=== PATIENT | female | born 1975 | race Caucasian/White ===

== ENCOUNTER 2017-07-05 13:10 | Outpatient (CLI) | payer BC ==
--- NOTE | 2017-07-05 15:32 | MMO ---
BILATERAL MAMMOGRAMS: DATE: 07/05/17 HISTORY: Screening mammography. COMPARISON: Baseline study. FINDINGS: Scattered fibroglandular densities are present. There is no dominant mass or suspicious calcificatio ns. The study was evaluated with the assistance of computer-aided detection. IMPRESSION: BIRADS 1: Negative Suggest routine follow-up. POS: BAILEE
== END 2017-07-05 13:11 | disposition home or self-care (01) ==
LOC: MAMMO 13:10
PROVIDERS: ATTEND Family Medicine
DX: Z12.31 Encounter for screening mammogram for malignant neoplasm of breast (principal)
CPT/HCPCS: 77067; G0202

== ENCOUNTER 2018-09-18 13:59 | Emergency (ER) | payer BC ==
[2018-09-18 18:29] LABS: #Basophils 0.1 thou/uL (0.0-0.2); #Eosinphils 0.1 thou/uL (0.0-0.7); #Lymphocytes 3.2 thou/uL (1.20-3.40); #Monocytes 0.4 thou/uL (0.11-0.59); #Neutrophils 3.6 thou/uL (1.40-6.50); %Eosinophils 1.2 % (0.0-10.0); %Lymphocytes 42.7 % (21.0-51.0); %Neutrophils 49.2 % (42.0-75.0); Hemoglobin 14.3 g/dL (12.0-16.0); Mean Corpuscular HGB CONC 32.6 g/dL (32.0-36.0); Mean Corpuscular Hemoglobin 31.5 pg (27.0-31.0); Mean Corpuscular Volume 96.9 fL (78.0-98.0); Mean Platelet Volume 8.3 fL (7.4-10.4); Platelet Count 246 thou/uL (130-400); RBC Distribution Width 11.8 % (11.5-14.5); Red Blood Cell (RBC) Count 4.54 mill/uL (4.20-5.40); White Blood Cell (WBC) Count 7.4 thou/uL (4.8-10.8)
[2018-09-18 18:50] LABS: ALT (SGPT) 13 U/L (8-55); AST (SGOT) 16 U/L (5-34); Albumin 4.1 g/dL (3.5-5.0); Alkaline Phosphatase 106 U/L (40-150); Anion Gap 12 mmol/L (10-20); BUN (Urea Nitrogen) 11 mg/dL (7.0-18.7); Bilirubin, Total 0.2 mg/dL (0.2-1.2); Calc. Creatinine Clearance 0 mL/min (70-130); Calcium 9.4 mg/dL (7.8-10.44); Carbon Dioxide 22 mmol/L (22-29); Chloride 108 mmol/L (98-107); Estimated GFR-MDRD 76; Globulin 2.4 g/dL (2.4-3.5); Glucose 68 mg/dL (70-105); Potassium 3.9 mmol/L (3.5-5.1); Protein, Total 6.5 g/dL (6.0-8.3); Sodium 138 mmol/L (136-145)
== END 2018-09-18 19:50 | disposition home or self-care (01) ==
LOC: ERS 13:59
DX: R42 Dizziness and giddiness (principal); T44.7X5A Adverse effect of beta-adrenoreceptor antagonists, initial encounter; E03.9 Hypothyroidism, unspecified; G43.909 Migraine, unspecified, not intractable, without status migrainosus; F31.9 Bipolar disorder, unspecified; F41.9 Anxiety disorder, unspecified; F17.200 Nicotine dependence, unspecified, uncomplicated; Z79.899 Other long term (current) drug therapy
CPT/HCPCS: 36415; 80053; 85025; 93005

== ENCOUNTER 2019-04-23 19:30 | Outpatient (CLI) | payer BC | END 2019-04-23 19:31 | disposition home or self-care (01) | LOC: SLEEPLAB 19:30 | PROVIDERS: ATTEND Family Medicine | DX: G47.33 Obstructive sleep apnea (adult) (pediatric) (principal); R53.83 Other fatigue; G31.84 Mild cognitive impairment of uncertain or unknown etiology; R51 Headache; E66.9 Obesity, unspecified; K21.9 Gastro-esophageal reflux disease without esophagitis; R06.83 Snoring; F41.8 Other specified anxiety disorders; I10 Essential (primary) hypertension | CPT/HCPCS: 95810 ==

== ENCOUNTER 2019-06-19 20:30 | Outpatient (CLI) | payer BC | END 2019-06-19 20:31 | disposition home or self-care (01) | LOC: SLEEPLAB 20:30 | PROVIDERS: ATTEND Family Medicine | DX: G47.33 Obstructive sleep apnea (adult) (pediatric) (principal); R53.83 Other fatigue; R51 Headache; E66.9 Obesity, unspecified; K21.9 Gastro-esophageal reflux disease without esophagitis; R06.83 Snoring; F41.8 Other specified anxiety disorders; I10 Essential (primary) hypertension | CPT/HCPCS: 95811 ==

== ENCOUNTER 2019-07-20 19:48 | Inpatient (IN) | payer BC ==
[2019-07-20] MEDS ORDERED: Lidocaine 1% w/Epinephrine 1:100K 20 ML VIAL ONE (21:26)
[2019-07-20] MEDS ORDERED: Morphine 4 MG/ML VIAL ONE (21:26)
[2019-07-20 21:29] LABS: #Basophils 0.1 thou/uL (0.0-0.2); #Eosinphils 0.2 thou/uL (0.0-0.7); #Lymphocytes 2.3 thou/uL (1.20-3.40); #Monocytes 0.6 thou/uL (0.11-0.59); #Neutrophils 5.3 thou/uL (1.40-6.50); %Basophils 0.7 % (0.0-1.0); %Eosinophils 2.1 % (0.0-10.0); %Lymphocytes 27.5 % (21.0-51.0); %Monocytes 6.8 % (0.0-10.0); Hemoglobin 14.5 g/dL (12.0-16.0); Mean Corpuscular HGB CONC 32.8 g/dL (32.0-36.0); Mean Corpuscular Hemoglobin 31.4 pg (27.0-31.0); Mean Corpuscular Volume 95.7 fL (78.0-98.0); Mean Platelet Volume 8.9 fL (7.4-10.4); Platelet Count 218 thou/uL (130-400); RBC Distribution Width 11.8 % (11.5-14.5); Red Blood Cell (RBC) Count 4.63 mill/uL (4.20-5.40); White Blood Cell (WBC) Count 8.4 thou/uL (4.8-10.8)
[2019-07-20] MEDS ORDERED: Clindamycin/D5W 900 MG in Premix Bag 1 BAG IVPB ONE (21:30)
[2019-07-20 22:00] LABS: ALT (SGPT) 18 U/L (8-55); AST (SGOT) 28 U/L (5-34); Albumin 4.2 g/dL (3.5-5.0); Alkaline Phosphatase 127 U/L (40-110); Anion Gap 14 mmol/L (10-20); BUN (Urea Nitrogen) 8 mg/dL (7.0-18.7); Bilirubin, Total 0.2 mg/dL (0.2-1.2); Calc. Creatinine Clearance 0 mL/min (70-130); Calcium 8.9 mg/dL (7.8-10.44); Carbon Dioxide 23 mmol/L (22-29); Chloride 106 mmol/L (98-107); Estimated GFR-MDRD 89; Globulin 2.6 g/dL (2.4-3.5); Glucose 70 mg/dL (70-105); Potassium 4.1 mmol/L (3.5-5.1); Protein, Total 6.8 g/dL (6.0-8.3); Sodium 139 mmol/L (136-145)
[2019-07-20] MEDS ORDERED: Clindamycin/D5W 900 mg/50 ml Premix Bag ONE (22:00)
[2019-07-20] MEDS ORDERED: Acetaminophen 650 MG Suppository PR PRN (23:38)
[2019-07-20] MEDS ORDERED: Ondansetron PF 4 MG/2 ML Vial IVP PRN (23:38)
[2019-07-20] MEDS ORDERED: Ondansetron ODT 4 MG TAB PO PRN (23:38)
[2019-07-21] MEDS ORDERED: HYDROcodone/Acetaminophen 5/325 mg Tablet ONE (00:32)
--- NOTE | 2019-07-21 00:45 | HP ---
PRIMARY CARE PHYSICIAN: Caden Delgadillo DO CHIEF COMPLAINT: Skin infection. HISTORY OF PRESENT ILLNESS: Ms. Brunson is a 43-year-old woman, who was seen at the [facility] earlier today due to complaints of multiple pustules involving her inner thighs and development of an abscess in the right thigh and right labia. The patient states she has had one or two abscesses in the past, but has never had multiple areas of involvement as she does now. She works at a [employer]. Reports feeling feverish. At the [facility], she was given an injection of ceftriaxone. She decided to draw line around some of these wounds and noted increasing surrounding erythema beyond the border that she had drawn, prompting her to come in. In the ED, she underwent laboratory studies which showed a normal blood count. Lactic acid also normal at 1.5. Her temperature has been mildly elevated at 99.6. Otherwise, vital signs have been normal. She underwent incision and drainage of the right labial abscess. She was started on IV antibiotics with vancomycin and clindamycin. Also given morphine for the pain. PAST MEDICAL HISTORY: 1. Verenice's thyroiditis. 2. Endometriosis. 3. Ovarian cyst. 4. Migraines. 5. Anxiety. 6. Bipolar disorder. 7. Depression. 8. Sleep apnea, CPAP with a setting of 8. PAST SURGICAL HISTORY: 1. Appendectomy. 2. Gastric bypass. 3. Gastric sleeve. 4. Left knee surgery. 5. Surgery for endometriosis x2. 6. Tonsillectomy. 7. Panniculectomy. SOCIAL HISTORY: The patient reports drinking alcohol socially. Denies any tobacco use or drug use. FAMILY HISTORY: Noncontributory. ALLERGIES: NO KNOWN DRUG ALLERGIES. CURRENT MEDICATIONS: 1. Prozac. 2. Wellbutrin. 3. Synthroid. 4. Xanax. 5. Lamictal. 6. Risperdal. 7. Baclofen. 8. Meloxicam. 9. Saxenda. PHYSICAL EXAMINATION: GENERAL: The patient appears well developed, well nourished, and is in no acute distress. VITAL SIGNS: Temperature 99.6, blood pressure 134/51, pulse 75, respirations 18 , and O2 saturation 100% on room air. HEENT: Normocephalic and atraumatic. Pupils are equal, round, and reactive to light. Sclerae without icterus. Oropharynx is clear. NECK: Supple. No lymphadenopathy. LUNGS: Clear to auscultation bilaterally without wheezes, rales, or rhonchi. CARDIAC: Regular rate and rhythm. ABDOMEN: Soft, nontender, and nondistended. Normoactive bowel sounds present. No guarding or rigidity. EXTREMITIES: Notable for multiple areas of pustules with surrounding erythema involving both legs. Dressing to right labia, status post I and D. The right inner thigh is notable for wound that is not actively draining or bleeding. Does have some surrounding erythema. INVESTIGATIONS: As mentioned above in HPI. IMPRESSION AND PLAN: Ms. Brunson is a pleasant 43-year-old woman with past medical history of Verenice's and endometriosis, who has also had previous abscesses. The patient presents with abscesses that began to form 3-4 days ago and with sudden spontaneous drainage from a right inner thigh abscess and now has undergone I and D of right labial abscess. We will continue IV antibiotics. Consultation has been placed to Dr. Lyle given the multiple areas affecting her legs. Never been this extensive in the past. Continue to monitor white cell count and lactic acid. Currently, labs are normal and she is hemodynamically normal as well. She is on multiple medications for her history of bipolar disease, depression, anxiety. We will reconcile home medications once these are verified. The patient is full code. Her surrogate decision maker is her mother, Liliana Brunson. The patient's case was discussed with Dr. Ramsey, who agrees with plan of care as described above. Job ID: [id number] [facility]
[2019-07-21 02:36] VITALS: BMI 47.0
[2019-07-21] MEDS: Sodium Chloride 0.9% 1,000 ML IV SCH ×2 (02:59→14:32)
[2019-07-21] MEDS: Levothyroxine Sodium 25 MCG TAB PO SCH (05:26)
[2019-07-21] MEDS: Acetaminophen 325 MG TAB PO PRN (05:26)
[2019-07-21 05:48] LABS: #Eosinphils 0.2 thou/uL (0.0-0.7); #Lymphocytes 1.9 thou/uL (1.20-3.40); #Monocytes 0.6 thou/uL (0.11-0.59); #Neutrophils 4.6 thou/uL (1.40-6.50); %Basophils 0.7 % (0.0-1.0); %Eosinophils 2.8 % (0.0-10.0); %Lymphocytes 25.9 % (21.0-51.0); %Monocytes 7.7 % (0.0-10.0); %Neutrophils 62.9 % (42.0-75.0); Hemoglobin 11.6 g/dL (12.0-16.0); Mean Corpuscular HGB CONC 32.6 g/dL (32.0-36.0); Mean Corpuscular Hemoglobin 30.7 pg (27.0-31.0); Mean Corpuscular Volume 94.2 fL (78.0-98.0); Mean Platelet Volume 7.5 fL (7.4-10.4); Platelet Count 208 thou/uL (130-400); RBC Distribution Width 11.5 % (11.5-14.5); Red Blood Cell (RBC) Count 3.79 mill/uL (4.20-5.40); White Blood Cell (WBC) Count 7.2 thou/uL (4.8-10.8)
[2019-07-21 06:10] LABS: Anion Gap 11 mmol/L (10-20); BUN (Urea Nitrogen) 8 mg/dL (7.0-18.7); Calc. Creatinine Clearance 256 mL/min (70-130); Calcium 8.3 mg/dL (7.8-10.44); Carbon Dioxide 21 mmol/L (22-29); Chloride 109 mmol/L (98-107); Estimated GFR-MDRD 90; Glucose 77 mg/dL (70-105); Potassium 3.4 mmol/L (3.5-5.1); Sodium 138 mmol/L (136-145)
[2019-07-21] MEDS: ALPRAZolam 0.5 MG TAB PO SCH ×2 (07:58→20:25)
[2019-07-21] MEDS: Docusate 100 MG CAP PO SCH ×2 (07:58→20:25)
[2019-07-21] MEDS: FLUoxetine HCl 20 MG CAP PO SCH (07:58)
[2019-07-21] MEDS ORDERED: Bupropion 150 MG XL TAB PO SCH (09:00)
[2019-07-21] MEDS ORDERED: Famotidine/PF 20 mg/2ml Vial SLOW IVP SCH (09:00)
[2019-07-21] MEDS ORDERED: buPROPion HCl 100 MG TAB PO SCH (09:00)
[2019-07-21] MEDS: Ketorolac Tromethamine 30 MG/ML VIAL IVP PRN (10:26)
[2019-07-21] MEDS: Morphine 2 MG/ML SYRINGE SLOW IVP PRN ×2 (11:47→17:48)
[2019-07-21] MEDS ORDERED: Meloxicam 15 MG TAB PO PRN ×2 (12:49→13:00)
--- NOTE | 2019-07-21 12:59 | PDOC.HOSPP ---
- Subjective Encounter Date: 07/21/19 Encounter Time: 11:00 Subjective: no pain, feels better - Objective Vital Signs & Weight: Vital Signs (12 hours) Temp Pulse Resp BP Pulse Ox 07/21/19 12:00 98.2 F 77 18 110/76 97 07/21/19 07:34 98.3 F 79 18 99/64 96 07/21/19 05:00 98.2 F 76 18 99/65 95 07/21/19 03:43 72 10 L 96 07/21/19 01:05 98.3 F 82 18 112/63 97 Weight Weight 347 lb I&O: 07/20/19 07/21/19 07/22/19 06:59 06:59 06:59 Intake Total 1300 Balance 1300 Result Diagrams: 07/21/19 05:32 07/21/19 05:32 Hospitalist ROS - Medication Medications: Active Medications Generic Name Dose Route Start Last Admin Trade Name Freq PRN Reason Stop Dose Admin Acetaminophen 650 mg 07/20/19 23:38 07/21/19 05:26 Tylenol PO 650 mg Q4H PRN Administration Headache/Fever/Mild Pain (1-3) Alprazolam 0.5 mg 07/21/19 09:00 07/21/19 07:58 Xanax PO 0.5 mg DAILY RITA Administration Docusate Sodium 100 mg 07/21/19 09:00 07/21/19 07:58 Colace PO Not Given BID RITA Fluoxetine HCl 60 mg 07/21/19 09:00 07/21/19 07:58 Prozac PO 60 mg DAILY RITA Administration Sodium Chloride 1,000 mls @ 65 mls/hr 07/20/19 23:45 07/21/19 02:59 Normal Saline 0.9% IV 1,000 mls .[id number] RITA Administration Vancomycin HCl 2 gm/ Sodium 500 mls @ 250 mls/hr 07/21/19 06:00 07/21/19 05: 26 Chloride IVPB 500 mls Q8HR RITA Administration Ketorolac Tromethamine 30 mg 07/21/19 10:13 07/21/19 10:26 Toradol IVP 07/26/19 10:14 30 mg Q6H PRN Administration Pain Levothyroxine Sodium 25 mcg 07/21/19 06:00 07/21/19 05:26 Synthroid PO 25 mcg 0600 RITA Administration Morphine Sulfate 2 mg 07/21/19 10:13 07/21/19 11:47 Morphine SLOW IVP 2 mg Q6H PRN Administration Pain - Exam General Appearance: NAD, awake alert Eye: PERRL, anicteric sclera ENT: no oropharyngeal lesions, moist mucosa Neck: supple, no JVD Heart: RRR, no murmur Respiratory: no wheezes, no rales Gastrointestinal: soft, non-tender, non-distended, normal bowel sounds Extremities: no cyanosis, no edema Neurological: cranial nerve grossly intact, no focal deficits Psychiatric: normal affect, A&O x 3 Hosp A/P (1) Multiple abscesses of both legs Code(s): L02.415 - CUTANEOUS ABSCESS OF RIGHT LOWER LIMB; L02.416 - CUTANEOUS ABSCESS OF LEFT LOWER LIMB Status: Acute (2) Abscess of left genital labia Code(s): N76.4 - ABSCESS OF VULVA Status: Acute (3) Morbid obesity with BMI of 45.0-49.9, adult Code(s): E66.01 - MORBID (SEVERE) OBESITY DUE TO EXCESS CALORIES; Z68.42 - BODY MASS INDEX (BMI) 45.0-49.9, ADULT Status: Chronic (4) Bipolar disorder Code(s): F31.9 - BIPOLAR DISORDER, UNSPECIFIED Status: Chronic Qualifiers: Active/Remission status: remission status unspecified Qualified Code(s): F31.9 - Bipolar disorder, unspecified (5) H/O Verenice thyroiditis Code(s): Z86.39 - PERSONAL HISTORY OF ENDO, NUTRITIONAL AND METABOLIC DISEASE Status: Chronic (6) h/o endometriosis Status: Chronic (7) MICHAEL (obstructive sleep apnea) Code(s): G47.33 - OBSTRUCTIVE SLEEP APNEA (ADULT) (PEDIATRIC) Status: Chronic - Plan is on vanc, recieved 1 dose of 900mg clinda in ER yesterday Obgyn consultation, there is still induration left on left labial abscess after I&D done in ER she sees Dr.Jamie Delgadillo for Obgyn as outpt, informed her to make an appt in 3 days for f/u await opinion reg antibiotic choice for dc plan, ?clinda will re-evaluate her in am to see if she needs debridement continue home meds xanax, wellbutrin, baclofen bid, lamictal, prozac, synthroid to amb in hallway as tolerated home cpap when sleeping watch for resp depression with pain meds specially at night with most of her psyhotropics scheduled at bedtime.
[2019-07-21] MEDS ORDERED: lamoTRIgine 100 MG TAB PO SCH (20:00)
[2019-07-21] MEDS: Baclofen 10 MG TAB PO SCH (20:26)
[2019-07-21] MEDS ORDERED: LAMOTRIGINE 300 MG PO SCH (21:00)
[2019-07-21] MEDS ORDERED: Melatonin 3 MG TAB PO PRN (21:32)
[2019-07-21 21:42] LABS: Vancomycin, Trough 21.5 ug/mL
--- NOTE | 2019-07-21 22:04 | CON ---
DATE OF CONSULTATION: 07/21/2019 REQUESTING PHYSICIAN: Ihsan Schmid MD REASON FOR CONSULTATION: Labial abscess. HISTORY OF PRESENT ILLNESS: Ms. Brunson is a 43-year-old white, G0, P0, not currently having menstrual cycles, who presents complaining of a several-day history of multiple sores noted across her thighs and legs. Of note is the fact that she had an abscess in her vulva that was open last night in the ER. She states at that time, a large amount of pus came out with that procedure. She is currently admitted and she is currently on vancomycin. PAST MEDICAL HISTORY: Includes endometriosis, Verenice's, and bipolar disorder. CURRENT MEDICATIONS: Include 1. Xanax. 2. Wellbutrin. 3. Prozac. 4. Lamictal. 5. Zofran. 6. Protonix. 7. Vancomycin as above. PAST SURGICAL HISTORY: Includes gastric sleeve, appendectomy, panniculectomy, knee surgery, and laparoscopy x2. ALLERGIES: NO KNOWN ALLERGIES. SOCIAL HISTORY: Denies tobacco, alcohol, or drug use. FAMILY HISTORY: Denies significant intellectual property counsel disease in the family. REVIEW OF SYSTEMS: Denies nausea, vomiting, fever, chills at the present time. PHYSICAL EXAMINATION: VITAL SIGNS: Her blood pressure at noon is 110/76, pulse is 77, respirations 18 , with 97% O2 saturation on room air. Her temperature is 98.2. GENERAL: She is pleasant and in no distress. : On exam, there is an indurated area above the right labia that has clearly been incised. There is Nu-Gauze extending from that area. That area is palpated and although it feels indurated, I see no purulence from this incision. ASSESSMENT: Vulvar abscess, status post incision and drainage in the ER. PLAN: At this point, I do not see any evidence of significant residual abscess. I would recommend continuing her on the antibiotics and I do see where an infectious disease consult has been requested by Dr. Lyle. Our service will check back in the morning and remove her gauze from the incision and review her wound at that time. Job ID: [id number] [facility]
--- NOTE | 2019-07-22 00:28 | CON ---
DATE OF CONSULTATION: REASON FOR CONSULTATION: Regarding folliculitis with cellulitis and an abscess. HISTORY OF PRESENT ILLNESS: A 43-year-old, history of Verenice disease, endometriosis, and prior gastric sleeve, as well as bipolar disorder, who has had areas of folliculitis in the lower segment of her body skin, which failed outpatient treatment with the Bactrim. She developed an abscess in the right labia and had to be admitted. She is currently receiving broad-spectrum antimicrobial coverage. Appears in no distress. She does have headaches intermittently from migraines, but right now they are not very active. No visual symptoms, sore throat, odynophagia, dysphagia. No back pain. No dyspnea or chest pain. No joint symptoms. No neurological symptoms. PAST MEDICAL HISTORY: Obesity, sleeve gastrectomy, Verenice disease, endometriosis, hypothyroidism, migraine headaches, prior appendectomy. Actually , she had a panniculitis, the appendix was normal then. Left knee surgery, surgery for endometriosis x2. SOCIAL HISTORY: Drinks occasionally. Does not smoke. Works for [employer]. FAMILY HISTORY: Noncontributory. PHYSICAL EXAMINATION: VITAL SIGNS: T-max 98.3, blood pressure 110/76, pulse 77, respirations 18, O2 saturation 97. SKIN: Shows multiple areas of folliculitis with surrounding rim of cellulitis, mostly in the lower aspect of her body skin, abdomen. A few ones have turned into furuncles or abscesses, but most of them are small. The rim of erythema is a little bit bigger. She has a cluster of folliculitis in the pelvic area and a right labial abscess which has been I and D'ed and packed. No lymphadenopathy. HEENT: Ocular movements conjugate. Oral cavity, normal. NECK: Supple. LUNGS: Symmetric, clear breath sounds. HEART: S1, S2. Regular rate. No S3 or S4. ABDOMEN: Soft, not distended or tender. No ascites. No bladder distention. EXTREMITIES: No joint inflammatory activity. Moves extremities equally with some limitations from inflammatory process. NEURO: Cognitive function appears to be intact. LABORATORY DATA: White cell count is 8.4 and 7.2, hemoglobin 14.5, platelets 218 with normal differential. Chemistry was normal except for some elevation in alkaline phosphatase. Microbiology with Gram stain from the abscess with gram-positive cocci in pairs and clusters. ASSESSMENT: Obesity, self excoriation, self inoculation with folliculitis and a few abscesses in the areas described above. The most likely culprit is Staphylococcus aureus, possibly methicillin-resistant Staphylococcus aureus. The patient is currently receiving vancomycin and we will wait for the identification, susceptibility profile of the organism and then hopefully transition to oral antimicrobial therapy to complete the treatment course. Blood cultures thus far no growth. We will have to verify that they remain so prior to discharge planning. No evidence of areas of distant dissemination at this point in time. She needs to trim her nails further and decolonization with hibiclens/ mupirocin or po Doxy/Rifampin in OP setting. Job ID: [id number] [facility]
[2019-07-22] MEDS: Levothyroxine Sodium 25 MCG TAB PO SCH (06:09)
[2019-07-22] MEDS: Sodium Chloride 0.9% 1,000 ML IV SCH ×2 (06:09→22:49)
[2019-07-22] MEDS: Ketorolac Tromethamine 30 MG/ML VIAL IVP PRN ×3 (08:48→22:00)
[2019-07-22] MEDS: Baclofen 10 MG TAB PO SCH ×2 (08:51→21:00)
[2019-07-22] MEDS: Docusate 100 MG CAP PO SCH ×2 (08:52→21:00)
[2019-07-22] MEDS: ALPRAZolam 0.5 MG TAB PO SCH ×2 (08:52→21:00)
[2019-07-22] MEDS: FLUoxetine HCl 20 MG CAP PO SCH (08:52)
[2019-07-22] MEDS: Bupropion 150 MG XL TAB PO SCH (08:53)
[2019-07-22] MEDS ORDERED: LIRAGLUTIDE 3 MG SQ SCH (09:00)
[2019-07-22] MEDS ORDERED: LIRAGLUTIDE 3 MG PO SCH (09:00)
[2019-07-22] MEDS: Morphine 2 MG/ML SYRINGE SLOW IVP PRN (09:52)
[2019-07-22 10:46] LABS: Vancomycin, Trough 12.6 ug/mL
[2019-07-22] MEDS: lamoTRIgine 100 MG TAB PO SCH (21:00)
[2019-07-22] MEDS: Vancomycin 1.5 GRAM/300 ML BAG 1.5 GM in Premix Bag 1 BAG IVPB SCH (22:49)
[2019-07-23] MEDS: Vancomycin 1.5 GRAM/300 ML BAG 1.5 GM in Premix Bag 1 BAG IVPB SCH ×3 (05:17→22:47)
[2019-07-23] MEDS: Levothyroxine Sodium 25 MCG TAB PO SCH (05:17)
[2019-07-23 06:07] LABS: #Eosinphils 0.2 thou/uL (0.0-0.7); #Lymphocytes 1.8 thou/uL (1.20-3.40); #Monocytes 0.5 thou/uL (0.11-0.59); #Neutrophils 3.8 thou/uL (1.40-6.50); %Basophils 0.6 % (0.0-1.0); %Eosinophils 3.6 % (0.0-10.0); %Lymphocytes 28.4 % (21.0-51.0); %Monocytes 8.1 % (0.0-10.0); %Neutrophils 59.3 % (42.0-75.0); Hemoglobin 11.3 g/dL (12.0-16.0); Mean Corpuscular HGB CONC 33.1 g/dL (32.0-36.0); Mean Corpuscular Hemoglobin 31.7 pg (27.0-31.0); Mean Corpuscular Volume 95.8 fL (78.0-98.0); Mean Platelet Volume 7.5 fL (7.4-10.4); Platelet Count 195 thou/uL (130-400); RBC Distribution Width 11.6 % (11.5-14.5); Red Blood Cell (RBC) Count 3.55 mill/uL (4.20-5.40); White Blood Cell (WBC) Count 6.4 thou/uL (4.8-10.8)
[2019-07-23 06:28] LABS: ALT (SGPT) 14 U/L (8-55); AST (SGOT) 14 U/L (5-34); Alkaline Phosphatase 84 U/L (40-110); Anion Gap 8 mmol/L (10-20); BUN (Urea Nitrogen) 8 mg/dL (7.0-18.7); Bilirubin, Total 0.2 mg/dL (0.2-1.2); Calc. Creatinine Clearance 289 mL/min (70-130); Calcium 8.3 mg/dL (7.8-10.44); Carbon Dioxide 24 mmol/L (22-29); Chloride 111 mmol/L (98-107); Estimated GFR-MDRD Greater than 90; Globulin 2.2 g/dL (2.4-3.5); Glucose 83 mg/dL (70-105); Potassium 4.1 mmol/L (3.5-5.1); Protein, Total 5.2 g/dL (6.0-8.3); Sodium 139 mmol/L (136-145)
--- NOTE | 2019-07-23 07:50 | PDOC.HOSPP ---
- Subjective Encounter Date: 07/22/19 Encounter Time: 16:30 Subjective: Patient seen and examined for cellulitis/vulvar abscess. Feels better. Pain controlled. No new complaints. No overnight events - Objective Vital Signs & Weight: Vital Signs (12 hours) Temp Pulse Resp BP BP Pulse Ox 07/23/19 04:00 97.9 F 76 18 117/69 98 07/22/19 20:00 97.8 F 79 18 137/82 96 Weight Admit Weight 347 lb Weight 347 lb I&O: 07/22/19 07/23/19 07/24/19 06:59 06:59 06:59 Intake Total 2820 Balance 2820 Result Diagrams: 07/23/19 05:49 07/23/19 05:49 Additional Labs: Microbiology 07/20/19 Unknown Labia - Abscess Bacterial Culture - Preliminary Staphylococcus aureus 07/20/19 21:19 Venous blood - Left Arm Blood Culture - Preliminary NO GROWTH AT 48 HOURS 07/20/19 20:50 Venous blood - Right Hand Blood Culture - Preliminary NO GROWTH AT 48 HOURS Hospitalist ROS - Review of Systems Respiratory: denies: cough, dry, shortness of breath, hemoptysis, SOB with excertion, pleuritic pain, sputum, wheezing, other Cardiovascular: denies: chest pain, palpitations, orthopnea, paroxysmal noc. dyspnea, edema, light headedness, other - Medication Medications: Active Medications Generic Name Dose Route Start Last Admin Trade Name Freq PRN Reason Stop Dose Admin Acetaminophen 650 mg 07/20/19 23:38 07/21/19 05:26 Tylenol PO 650 mg Q4H PRN Administration Headache/Fever/Mild Pain (1-3) Alprazolam 0.5 mg 07/21/19 09:00 07/22/19 08:52 Xanax PO 0.5 mg DAILY RITA Administration Alprazolam 0.5 mg 07/21/19 21:00 07/22/19 21:00 Xanax PO 0.5 mg HS RITA Administration Baclofen 10 mg 07/21/19 21:00 07/22/19 21:00 Lioresal PO 10 mg BID RITA Administration Bupropion HCl 300 mg 07/22/19 09:00 07/22/19 08:53 Wellbutrin Xl PO 300 mg QAM RITA Administration Docusate Sodium 100 mg 07/21/19 09:00 07/22/19 21:00 Colace PO 100 mg BID RITA Administration Fluoxetine HCl 60 mg 07/21/19 09:00 07/22/19 08:52 Prozac PO 60 mg DAILY RITA Administration Sodium Chloride 1,000 mls @ 65 mls/hr 07/20/19 23:45 07/22/19 22:49 Normal Saline 0.9% IV 1,000 mls .[id number] RITA Administration Vancomycin HCl 1.5 gm/ Device 300 mls @ 200 mls/hr 07/22/19 22:00 07/23/19 05 :17 IVPB 300 mls Q8HR RITA Administration Ketorolac Tromethamine 30 mg 07/21/19 10:13 07/22/19 22:00 Toradol IVP 07/26/19 10:14 30 mg Q6H PRN Administration Pain Lamotrigine 300 mg 07/22/19 21:00 07/22/19 21:00 Lamictal PO 300 mg HS RITA Administration Levothyroxine Sodium 25 mcg 07/21/19 06:00 07/23/19 05:17 Synthroid PO 25 mcg 0600 RITA Administration Morphine Sulfate 2 mg 07/21/19 10:13 07/22/19 09:52 Morphine SLOW IVP 2 mg Q6H PRN Administration Pain Pantoprazole Sodium 40 mg 07/22/19 09:00 07/22/19 08:52 Protonix PO 40 mg DAILY RITA Administration - Exam General Appearance: NAD Heart: RRR, no rubs Respiratory: CTAB, no rales Gastrointestinal: soft, non-tender, normal bowel sounds Extremities: no edema Hosp A/P - Plan DVT proph w/SCDs B/L LE Cellulitis Vulvar abscess s/p I/D in ER Hypokalemia Morbid obesity BMI 47.1 Hypothyroidism DM2 MICHAEL on CPAP Anxiety PLAN: Replace Potassium Cont IV Vancomycin Monitor Vancomycin level Cont other meds
[2019-07-23] MEDS ORDERED: Potassium Chloride 20 MEQ TAB PO SCH (08:00)
[2019-07-23] MEDS: Ketorolac Tromethamine 30 MG/ML VIAL IVP PRN ×3 (08:31→22:47)
[2019-07-23] MEDS: Bupropion 150 MG XL TAB PO SCH (08:32)
[2019-07-23] MEDS: Baclofen 10 MG TAB PO SCH ×2 (08:33→20:38)
[2019-07-23] MEDS: ALPRAZolam 0.5 MG TAB PO SCH ×2 (08:33→20:39)
[2019-07-23] MEDS: Docusate 100 MG CAP PO SCH ×2 (08:33→20:39)
[2019-07-23] MEDS: FLUoxetine HCl 20 MG CAP PO SCH (08:33)
--- NOTE | 2019-07-23 08:39 | PRG ---
DATE OF SERVICE: 07/22/2019 SUBJECTIVE: The patient is a 43-year-old female, admitted to the hospital for cellulitis. POWER TECHNICIAN was consulted for a vulvar abscess. This abscess was I and D'd and packed by the ER physician at time of admission, and we were consulted to see if there are any surgical needs. Yesterday, at time of evaluation, the Wound Care Team was present and removed the packing and probing the wound did not feel any other cystic regions or loculations that were of concern. The tissue surrounding this abscess was firm, but did not have any fluctuance. The appearance and dimensions of this abscess were inconsistent with the other abscesses on her body right now, she is having multiple. OBJECTIVE: VITAL SIGNS: At time of the evaluation, blood pressure 130/81, temperature 98.1, pulse is 79, respiratory rate 20, and saturating 96% on room air. GENERAL: She appears to be in no acute distress. She is alert, oriented, and cooperative and pleasant to interact with. : Again, the vulva as described above. ASSESSMENT: The patient is a 43-year-old female with a small abscess on her vulva mons on the right side that has been drained. I do not believe that she has any surgical needs at this time. She is receiving vancomycin for antibiotics with bacterial culture positive for Staph aureus. At this time, we will be signing off and if there are any further needs for POWER TECHNICIAN, please consult us again. Job ID: [id number]
[2019-07-23] MEDS: lamoTRIgine 100 MG TAB PO SCH (20:38)
[2019-07-23 21:15] LABS: Vancomycin, Trough 19.8 ug/mL
[2019-07-24] MEDS: Vancomycin 1.5 GRAM/300 ML BAG 1.5 GM in Premix Bag 1 BAG IVPB SCH ×2 (06:25→15:04)
[2019-07-24] MEDS: Levothyroxine Sodium 25 MCG TAB PO SCH (06:25)
--- NOTE | 2019-07-24 08:21 | PDOC.HOSPP ---
- Subjective Encounter Date: 07/23/19 Encounter Time: 11:30 Subjective: Patient seen and examined for Sepsis. No fever. Erythema improving. No new complaints. No overnight events - Objective Vital Signs & Weight: Vital Signs (12 hours) Temp Pulse Resp BP Pulse Ox 07/24/19 07:59 98.0 F 73 20 133/71 96 Weight Admit Weight 347 lb Weight 347 lb I&O: 07/23/19 07/24/19 07/25/19 06:59 06:59 06:59 Intake Total 2820 3530 Balance 2820 3530 Result Diagrams: 07/23/19 05:49 07/23/19 05:49 Hospitalist ROS - Review of Systems Cardiovascular: denies: chest pain, palpitations, orthopnea, paroxysmal noc. dyspnea, edema, light headedness, other Gastrointestinal: denies: nausea, vomiting, abdominal pain, diarrhea, constipation, melena, hematochezia, other - Medication Medications: Active Medications Generic Name Dose Route Start Last Admin Trade Name Freq PRN Reason Stop Dose Admin Acetaminophen 650 mg 07/20/19 23:38 07/21/19 05:26 Tylenol PO 650 mg Q4H PRN Administration Headache/Fever/Mild Pain (1-3) Alprazolam 0.5 mg 07/21/19 09:00 07/23/19 08:33 Xanax PO 0.5 mg DAILY RITA Administration Alprazolam 0.5 mg 07/21/19 21:00 07/23/19 20:39 Xanax PO 0.5 mg HS RITA Administration Baclofen 10 mg 07/21/19 21:00 07/23/19 20:38 Lioresal PO 10 mg BID RITA Administration Bupropion HCl 300 mg 07/22/19 09:00 07/23/19 08:32 Wellbutrin Xl PO 300 mg QAM RITA Administration Docusate Sodium 100 mg 07/21/19 09:00 07/23/19 20:39 Colace PO 100 mg BID RITA Administration Fluoxetine HCl 60 mg 07/21/19 09:00 07/23/19 08:33 Prozac PO 60 mg DAILY RITA Administration Vancomycin HCl 1.5 gm/ Device 300 mls @ 200 mls/hr 07/22/19 22:00 07/24/19 06 :25 IVPB 300 mls Q8HR RITA Administration Ketorolac Tromethamine 30 mg 07/21/19 10:13 07/23/19 22:47 Toradol IVP 07/26/19 10:14 30 mg Q6H PRN Administration Pain Lamotrigine 300 mg 07/22/19 21:00 07/23/19 20:38 Lamictal PO 300 mg HS RITA Administration Levothyroxine Sodium 25 mcg 07/21/19 06:00 07/24/19 06:25 Synthroid PO 25 mcg 0600 RITA Administration Meloxicam 15 mg 07/21/19 13:00 07/23/19 19:37 Mobic PO 15 mg DAILY PRN Administration Pain Morphine Sulfate 2 mg 07/21/19 10:13 07/22/19 09:52 Morphine SLOW IVP 2 mg Q6H PRN Administration Pain Pantoprazole Sodium 40 mg 07/22/19 09:00 07/23/19 08:33 Protonix PO 40 mg DAILY RITA Administration - Exam General Appearance: NAD Heart: RRR, no gallops Respiratory: CTAB, no rales Gastrointestinal: soft, non-distended Extremities: no edema Extremities - other findings: erythema improving Hosp A/P - Plan B/L LE Cellulitis Vulvar abscess s/p I&D in ER Hypokalemia Morbid obesity BMI 47.1 Hypothyroidism DM2 MICHAEL on CPAP Anxiety PLAN: Cont IV Vancomycin for another 1-2 days Monitor Vancomycin level Ambulate Cont other meds DC planning in 1-2 days
[2019-07-24] MEDS: Bupropion 150 MG XL TAB PO SCH (08:23)
[2019-07-24] MEDS: Docusate 100 MG CAP PO SCH ×2 (08:23→20:40)
[2019-07-24] MEDS: ALPRAZolam 0.5 MG TAB PO SCH ×2 (08:24→20:40)
[2019-07-24] MEDS: FLUoxetine HCl 20 MG CAP PO SCH (08:24)
[2019-07-24] MEDS: Baclofen 10 MG TAB PO SCH ×2 (08:24→20:40)
[2019-07-24] MEDS: Ketorolac Tromethamine 30 MG/ML VIAL IVP PRN ×2 (08:27→15:01)
[2019-07-24] MEDS: Morphine 2 MG/ML SYRINGE SLOW IVP PRN (12:08)
--- NOTE | 2019-07-24 15:02 | ULT ---
Exam: Transabdominal and endovaginal pelvic ultrasound HISTORY:Lower abdominal pain. History of endometriosis COMPARISON: 11/26/2014 TECHNIQUE: Transabdominal and endovaginal imaging of the pelvis is performed. FINDINGS: Markedly suboptimal evaluation of the pelvic structures due to body habitus and bowel gas. Uterus: No obvious myometrial masses. Uterus is poorly defined. Grossly, uterus measures 5.8 x 3.3 x 4.5 cm. Endometrium: Suboptimal evaluation Possible 0.8 cm nabothian cyst. Free fluid: None Right ovary: Not appreciated. Left ovary: Not appreciated IMPRESSION: Markedly suboptimal evaluation due to body habitus and bowel gas.
--- NOTE | 2019-07-24 16:14 | PDOC.EVN ---
Event Note - Event Note Event Note: CTSP for abdominal pain, suspect 2* to reported h/o of endometriosis. Says vulva/mons is improved and nonpainful. Continues on Vancomycin. VSS AF PEx; no guarding or rebound. Areas of redness across lower abdomen and legs are improved. Vulvar culture shows S. Aureus- sensitivities pending. TVUSG- suboptimal but shows small 5 cm uterus, no masses are visualized. A/P; No evidence of endometrioma.
[2019-07-24] MEDS ORDERED: Ibuprofen 600 MG TAB PO SCH (16:45)
[2019-07-24] MEDS ORDERED: Cyclobenzaprine 10 MG TAB PO PRN (16:46)
--- NOTE | 2019-07-24 17:02 | PRG ---
DATE OF SERVICE: 07/24/2019 SUBJECTIVE: Ms. Brunson is better, although she is having what appears to be an endometriosis-related pain. The pain started yesterday. She had a pelvic transvaginal ultrasound, and the evaluation was suboptimal. Dr. Felix evaluated the patient, and findings were not particularly remarkable. She continues with some pain. The other lesions have improved significantly. No respiratory symptoms. No diarrhea. OBJECTIVE: HEENT: Ocular movements are conjugate. NECK: Supple. LUNGS: Symmetric air entry. HEART: S1 and S2. Regular rate. No murmurs. ABDOMEN: Soft with tenderness in the pelvic area. All the inflammatory processes are improving in the lower abdomen and in the groin. LABORATORY DATA: White cell count 6.4, hemoglobin 11.3, platelets 195. Creatinine 0.63. The labia abscess with Staphylococcus aureus, which was methicillin sensitive. ASSESSMENT: Obesity, self excoriation, self inoculation with folliculitis, and a few abscesses in the abdominal wall area, infra-abdominal folds, upper thighs with methicillin-sensitive Staphylococcus aureus. We will switch her to oral Keflex for about 10 days. After that, then the patient to transition to Hibiclens decolonization regimen. The patient to use once a day during bathing, allow to dry off on the skin, and then wash it off daily for 7 days out of the month for 3 consecutive months. Also, at the same time, mupirocin nasal ointment twice daily with the same schedule of administration. If that fails, then she would have to take systemic antimicrobial decolonization with doxycycline and rifampin. Job ID: [id number]
[2019-07-24] MEDS: Dicyclomine 10 MG CAP PO PRN (17:29)
[2019-07-24] MEDS: Cephalexin 250 MG CAP PO SCH ×2 (17:37→23:17)
--- NOTE | 2019-07-24 20:40 | PDOC.HOSPP ---
- Subjective Encounter Date: 07/24/19 Encounter Time: 14:30 Subjective: Patient seen and examined for Cellulitis. c/o cramping lower abdominal pain. No N/V. Had BM earlier. No other complaints. No overnight events - Objective Vital Signs & Weight: Vital Signs (12 hours) Temp Pulse Resp BP Pulse Ox 07/24/19 20:00 98.2 F 65 20 138/84 95 Weight Admit Weight 347 lb Weight 347 lb I&O: 07/23/19 07/24/19 07/25/19 06:59 06:59 06:59 Intake Total 2820 3530 1350 Balance 2820 3530 1350 Result Diagrams: 07/23/19 05:49 07/23/19 05:49 Radiology Reviewed by me: No ([facility] Abd - no acute findings) Hospitalist ROS - Review of Systems Respiratory: denies: cough, dry, shortness of breath, hemoptysis, SOB with excertion, pleuritic pain, sputum, wheezing, other Cardiovascular: denies: chest pain, palpitations, orthopnea, paroxysmal noc. dyspnea, edema, light headedness, other - Medication Medications: Active Medications Generic Name Dose Route Start Last Admin Trade Name Freq PRN Reason Stop Dose Admin Acetaminophen 650 mg 07/20/19 23:38 07/21/19 05:26 Tylenol PO 650 mg Q4H PRN Administration Headache/Fever/Mild Pain (1-3) Alprazolam 0.5 mg 07/21/19 09:00 07/24/19 08:24 Xanax PO 0.5 mg DAILY RITA Administration Alprazolam 0.5 mg 07/21/19 21:00 07/23/19 20:39 Xanax PO 0.5 mg HS RITA Administration Baclofen 10 mg 07/21/19 21:00 07/24/19 08:24 Lioresal PO 10 mg BID RITA Administration Bupropion HCl 300 mg 07/22/19 09:00 07/24/19 08:23 Wellbutrin Xl PO 300 mg QAM RITA Administration Cephalexin 500 mg 07/24/19 18:00 07/24/19 17:37 Keflex PO 500 mg Q6HR RITA Administration Dicyclomine HCl 10 mg 07/24/19 16:46 07/24/19 17:29 Bentyl PO 10 mg QIDPRN PRN Administration GI spasm Docusate Sodium 100 mg 07/21/19 09:00 07/24/19 08:23 Colace PO 100 mg BID RITA Administration Fluoxetine HCl 60 mg 07/21/19 09:00 07/24/19 08:24 Prozac PO 60 mg DAILY RITA Administration Lamotrigine 300 mg 07/22/19 21:00 07/23/19 20:38 Lamictal PO 300 mg HS RITA Administration Levothyroxine Sodium 25 mcg 07/21/19 06:00 07/24/19 06:25 Synthroid PO 25 mcg 0600 RITA Administration Meloxicam 15 mg 07/21/19 13:00 07/23/19 19:37 Mobic PO 15 mg DAILY PRN Administration Pain Morphine Sulfate 2 mg 07/21/19 10:13 07/24/19 12:08 Morphine SLOW IVP 2 mg Q6H PRN Administration Pain Pantoprazole Sodium 40 mg 07/22/19 09:00 07/24/19 08:24 Protonix PO 40 mg DAILY RITA Administration - Exam General Appearance: NAD Heart: RRR, no gallops Respiratory: CTAB, no rales Gastrointestinal: soft, non-distended, tender to palpation (suprapubic area) Extremities: no edema Extremities - other findings: erythema improving Hosp A/P - Plan DVT proph w/SCDs B/L LE Cellulitis - improving New suprapubic pain ?etio Vulvar abscess s/p I&D in ER Hypokalemia Morbid obesity BMI 47.1 Hypothyroidism DM2 MICHAEL on CPAP Anxiety PLAN: Librarian Helper input appreciate Cont IV Atbx Pain control Ambulate Cont other meds as above DC in 24 hr if stable
[2019-07-24] MEDS: lamoTRIgine 100 MG TAB PO SCH (20:41)
[2019-07-24] MEDS: Ibuprofen 200 MG TAB PO SCH (20:41)
[2019-07-25] MEDS: Cephalexin 250 MG CAP PO SCH (05:10)
[2019-07-25] MEDS: Dicyclomine 10 MG CAP PO PRN (05:10)
[2019-07-25] MEDS: Levothyroxine Sodium 25 MCG TAB PO SCH (05:10)
[2019-07-25] MEDS: Acetaminophen 325 MG TAB PO PRN (05:10)
[2019-07-25 07:46] VITALS: BP 124/83; TEMP 97.7
[2019-07-25] MEDS: ALPRAZolam 0.5 MG TAB PO SCH (08:15)
[2019-07-25] MEDS: Ibuprofen 200 MG TAB PO SCH (08:15)
[2019-07-25] MEDS: Baclofen 10 MG TAB PO SCH (08:16)
[2019-07-25] MEDS: FLUoxetine HCl 20 MG CAP PO SCH (08:16)
[2019-07-25] MEDS: Docusate 100 MG CAP PO SCH (08:17)
[2019-07-25] MEDS: Bupropion 150 MG XL TAB PO SCH (08:18)
[2019-07-25] MEDS ORDERED: Saccharomyces boulardii 250 MG CAP PO SCH (09:00)
--- NOTE | 2019-07-25 15:36 | DIS ---
DATE OF ADMISSION: 07/21/2019 DATE OF DISCHARGE: 07/25/2019 DISCHARGE DISPOSITION: Home. FOLLOWUP: 1. Follow up with primary care physician, Dr. Caden Delgadillo, in 1 week. 2. Follow up with MOTOR VEHICLE COMPLIANCE ANALYST, . 3. Follow up with Infectious Disease as scheduled. ALLERGIES: NO KNOWN DRUG ALLERGIES. THE PATIENT WAS SEEN AND EXAMINED ON THE DAY OF DISCHARGE. DENIES ANY NEW COMPLAINTS. DISCHARGE MEDICATIONS: 1. Keflex 500 mg every 6 hourly for next 10 days. 2. Bentyl as needed for GI spasms. 3. Mupirocin 2% nasal ointment twice daily. The patient was advised to use 7 days every month for 3 consecutive months. 4. Florastor 250 mg daily. All other home medications were left unchanged. INPATIENT RECONSTRUCTIVE SURGEON: 1. Infectious Disease, Dr. Lyle. 2. MOTOR VEHICLE COMPLIANCE ANALYST, Dr. Felix. BRIEF HOSPITAL COURSE: The patient is a 43-year-old female with endometriosis, presented to the emergency room from an Urgent Care with erythema and skin lesion around the right thigh. She also had significant pain over the right labia. She underwent incision and drainage of the labial abscess in the emergency room. She was placed on broad-spectrum antibiotics that has been changed to Keflex at discharge per Infectious Disease recommendation. Culture from the labial abscess was consistent with methicillin-sensitive Staph aureus. Her blood cultures, however, were negative. She had a flare of endometriosis. She also had a pelvic ultrasound, which was limited due to body habitus. She was evaluated by Infectious Disease as well as MOTOR VEHICLE COMPLIANCE ANALYST, Dr. Felix. She has been cleared by consultants for discharge. She was advised to resume Hibiclens as prescribed by primary care physician. FINAL DIAGNOSES: 1. Bilateral lower extremity cellulitis. 2. Valvar abscess, status post incision and drainage in the emergency room. Cultures were positive for methicillin-sensitive Staphylococcus aureus. 3. Suprapubic pain that started yesterday, probably secondary to endometriosis. Responded to NSAIDs. 4. Hypokalemia. 5. Morbid obesity with a body mass index of 47.1. 6. Diabetes mellitus type 2. 7. Hypothyroidism. 8. Anxiety. 9. Obstructive sleep apnea, on CPAP. 10. Mild anemia, suspected chronic. PLAN: Plan was discussed with the patient in detail. She stated understanding. Job ID: [id number]
== END 2019-07-25 10:05 | disposition home or self-care (01) | DRG 746 ==
LOC: ERS 19:48 → T4-B 07-21 01:50 → OBSVTOIN 07-21 01:50
PROVIDERS: ADMIT Internal Medicine; ATTEND Internal Medicine
PROC: 0U9MXZZ Drainage of Vulva, External Approach (ICD-10-PCS; principal; 2019-07-21)
DX: N76.4 Abscess of vulva (principal); Z68.42 Body mass index [BMI] 45.0-49.9, adult; L03.115 Cellulitis of right lower limb; L03.116 Cellulitis of left lower limb; L02.211 Cutaneous abscess of abdominal wall; G47.33 Obstructive sleep apnea (adult) (pediatric); G43.909 Migraine, unspecified, not intractable, without status migrainosus; F41.9 Anxiety disorder, unspecified; G47.00 Insomnia, unspecified; Z90.49 Acquired absence of other specified parts of digestive tract; Z98.84 Bariatric surgery status; Z90.89 Acquired absence of other organs; E66.01 Morbid (severe) obesity due to excess calories; F31.9 Bipolar disorder, unspecified; Z86.39 Personal history of other endocrine, nutritional and metabolic disease; B95.62 Methicillin resistant Staphylococcus aureus infection as the cause of diseases classified elsewhere; E87.6 Hypokalemia; E03.9 Hypothyroidism, unspecified; D64.9 Anemia, unspecified; E06.3 Autoimmune thyroiditis
CPT/HCPCS: 36415; 56405; 76856; 80048; 80053; 80202; 83605; 85025; 87040; 87070; 87077; 87186; 87205; 94660; 96365; 96366; 96368; 96375; J1885; J2270; J3370; J3490; J7050; S0028

== ENCOUNTER 2021-01-25 13:02 | Outpatient (CLI) | payer BC | END 2021-01-25 13:03 | disposition home or self-care (01) | LOC: BICRAD 13:02 | PROVIDERS: ATTEND Nurse Practitioner Family | DX: M25.562 Pain in left knee (principal); M17.12 Unilateral primary osteoarthritis, left knee ==

== ENCOUNTER 2021-01-31 08:00 | Outpatient (CLI) | payer BC | END 2021-01-31 08:01 | disposition home or self-care (01) | LOC: BICRAD 08:00 | PROVIDERS: ATTEND Family Medicine | DX: M23.91 Unspecified internal derangement of right knee (principal) ==

== ENCOUNTER 2021-02-13 07:25 | Outpatient (CLI) | payer BC | END 2021-02-13 07:26 | disposition home or self-care (01) | LOC: BICMRI 07:25 | PROVIDERS: ATTEND Family Medicine | DX: M23.92 Unspecified internal derangement of left knee (principal); M17.12 Unilateral primary osteoarthritis, left knee ==

== ENCOUNTER 2021-07-13 16:04 | Outpatient (CLI) | payer BC | END 2021-07-13 16:05 | disposition home or self-care (01) | LOC: CTENTCT 16:04 | PROVIDERS: ATTEND Otolaryngology Plastic Surgery within the Head & Neck | DX: J32.9 Chronic sinusitis, unspecified (principal) | CPT/HCPCS: 70486 ==

== ENCOUNTER 2022-01-26 08:17 | Outpatient (CLI) | payer BC ==
[2022-01-26 10:01] LABS: BHCG - Serum Negative (NEGATIVE); Pregs Control Background? CLEAR/WHITE (CLR/WHITE); Pregs Control Bar Appear? YES (CONTROL BAR)
[2022-01-26 21:28] LABS: SARS-CoV-2 PCR by NAA Not Detected (NotDetected)
== END 2022-01-26 08:18 | disposition home or self-care (01) ==
LOC: LABBT 08:17
PROVIDERS: ATTEND Otolaryngology Plastic Surgery within the Head & Neck
DX: Z01.812 Encounter for preprocedural laboratory examination (principal); H72.92 Unspecified perforation of tympanic membrane, left ear; H65.492 Other chronic nonsuppurative otitis media, left ear; H69.83 Other specified disorders of Eustachian tube, bilateral; H74.02 Tympanosclerosis, left ear; Z20.822 Contact with and (suspected) exposure to COVID-19
CPT/HCPCS: 84703; 85014; U0003; U0005

== ENCOUNTER 2022-01-31 07:02 | Day surgery (SDC) | payer BC ==
[2022-01-30 12:48] VITALS: BMI 46.7
[2022-01-31] MEDS ORDERED: Lidocaine 1% w/Epinephrine 1:100K 20 ML VIAL ONE (09:04)
[2022-01-31] MEDS ORDERED: Ciprofloxacin 0.2% Otic (0.25ML CONTAINER) ONE (09:10)
[2022-01-31] MEDS ORDERED: fentaNYL Citrate/PF 100 MCG/2 ML SYRINGE ONE ×2 (09:13→10:30)
[2022-01-31] MEDS ORDERED: Lidocaine 1% PF 5 ML VIAL ONE (09:26)
[2022-01-31] MEDS ORDERED: Ondansetron PF 4 MG/2 ML Vial ONE (09:26)
[2022-01-31] MEDS ORDERED: Dexamethasone 20 MG/5 ML VIAL ONE (09:26)
[2022-01-31] MEDS ORDERED: PROPOFOL 200 MG/20 ML VIAL ONE (09:26)
[2022-01-31] MEDS ORDERED: Fentanyl 100 MCG/2 ML VIAL ONE (10:09)
== END 2022-01-31 12:10 | disposition home or self-care (01) ==
LOC: SDC 07:02
PROVIDERS: ATTEND Otolaryngology Plastic Surgery within the Head & Neck
PROC: 09U877Z Supplement Left Tympanic Membrane with Autologous Tissue Substitute, Via Natural or Artificial Opening (ICD-10-PCS; principal; 2022-01-31)
DX: H65.492 Other chronic nonsuppurative otitis media, left ear (principal); H72.12 Attic perforation of tympanic membrane, left ear; H69.83 Other specified disorders of Eustachian tube, bilateral; J34.3 Hypertrophy of nasal turbinates; Z79.890 Hormone replacement therapy; Z79.899 Other long term (current) drug therapy
CPT/HCPCS: J1100; J2405; J2704; J3010

== ENCOUNTER 2022-03-23 09:12 | Emergency (ER) | payer BC ==
[2022-03-23 09:59] LABS: #Basophils 0.1 thou/uL (0.0-0.2); #Eosinphils 0.1 thou/uL (0.0-0.7); #Lymphocytes 2.6 thou/uL (1.20-3.40); #Monocytes 0.6 thou/uL (0.11-0.59); %Basophils 0.5 % (0.0-1.0); %Eosinophils 1.1 % (0.0-10.0); %Lymphocytes 24.7 % (21.0-51.0); %Monocytes 6.1 % (0.0-10.0); %Neutrophils 67.6 % (42.0-75.0); Hemoglobin 14.9 g/dL (12.0-16.0); Mean Corpuscular HGB CONC 31.9 g/dL (32.0-36.0); Mean Corpuscular Hemoglobin 31.5 pg (27.0-31.0); Mean Corpuscular Volume 98.6 fL (78.0-98.0); Platelet Count 292 thou/uL (130-400); RBC Distribution Width 11.5 % (11.5-14.5); Red Blood Cell (RBC) Count 4.73 mill/uL (4.20-5.40); White Blood Cell (WBC) Count 10.4 thou/uL (4.8-10.8)
[2022-03-23 10:21] LABS: ALT (SGPT) 9 U/L (8-55); AST (SGOT) 9 U/L (5-34); Albumin 3.9 g/dL (3.5-5.0); Alkaline Phosphatase 128 U/L (40-110); Anion Gap 16 mmol/L (10-20); BUN (Urea Nitrogen) 11 mg/dL (7.0-18.7); Bilirubin, Total 0.3 mg/dL (0.2-1.2); Calc. Creatinine Clearance 0 mL/min (70-130); Calcium 9.2 mg/dL (7.8-10.44); Carbon Dioxide 22 mmol/L (22-29); Chloride 107 mmol/L (98-107); Estimated GFR 105; Globulin 2.7 g/dL (2.4-3.5); Glucose 90 mg/dL (70-105); Potassium 3.8 mmol/L (3.5-5.1); Protein, Total 6.6 g/dL (6.0-8.3); Sodium 141 mmol/L (136-145)
[2022-03-23] MEDS ORDERED: Metoclopramide HCl 10 MG/2 ML VIAL ONE (10:28)
[2022-03-23] MEDS ORDERED: diphenhydrAMINE 50 MG/ML VIAL ONE (10:28)
[2022-03-23] MEDS ORDERED: Ketamine 50 MG/ML (10ML VIAL) ONE (12:04)
[2022-03-23] MEDS ORDERED: Magnesium 2 GM/50 ML BAG (IN WATER) ONE (13:20)
[2022-03-23] MEDS ORDERED: Ketorolac Tromethamine 30 MG/ML VIAL ONE (13:21)
== END 2022-03-23 14:34 | disposition home or self-care (01) ==
LOC: ERS 09:12
DX: R51.9 Headache, unspecified (principal); E03.9 Hypothyroidism, unspecified; Z79.899 Other long term (current) drug therapy
CPT/HCPCS: 36415; 70450; 80053; 84443; 84484; 85025; 93005; 96365; 96366; 96368; 96375; J1200; J1885; J2765; J3475

== ENCOUNTER 2022-03-28 04:04 | Emergency (ER) | payer BC ==
[2022-03-28] MEDS ORDERED: HYDROcodone/Acetaminophen 10/325 mg Tablet ONE (06:25)
== END 2022-03-28 06:44 | disposition home or self-care (01) ==
LOC: ERS 04:04
DX: R07.81 Pleurodynia (principal); E03.9 Hypothyroidism, unspecified; Z79.899 Other long term (current) drug therapy